=== PATIENT | female | born 1980 | race Caucasian/White ===

== ENCOUNTER 2019-01-17 21:40 | Emergency (ER) | payer BC ==
[~2019-01-17] VITALS: Ht 167.6 cm; Wt 99.8 kg
[2019-01-17 22:40] VITALS: BP 128/57
[2019-01-17] MEDS ORDERED: ESCITALOPRAM OX10 MG PO (22:45)
[2019-01-17] MEDS ORDERED: BUPR100T7 PO ×2 (22:46→23:01)
--- NOTE | 2019-01-17 23:40 | PHYS DOC ---
Past Medical History Past Medical History: Anxiety, Depression Past Surgical History: No Surgical History Alcohol Use: None Drug Use: None Adult General Chief Complaint Chief Complaint: ANKLE PROBLEM HPI HPI Patient is a 38 year old female presents to the ED complaining of right foot injury 2 hours ago. Patient states that she was going downstairs and twisted her right foot. Describes her pain as sharp. Rates her pain as 5 out of 10. Denies knee injury, weakness, paresthesias, swelling, laceration, or inability to bear weight. Review of Systems Review of Systems Constitutional: Denies fever or chills [] Eyes: Denies change in visual acuity, redness, or eye pain [] HENT: Denies nasal congestion or sore throat [] Respiratory: Denies cough or shortness of breath [] Cardiovascular: No additional information not addressed in HPI [] GI: Denies abdominal pain, nausea, vomiting, bloody stools or diarrhea [] : Denies dysuria or hematuria [] Musculoskeletal: Complains of foot and ankle pain. Denies back pain. Integument: Denies rash or skin lesions [] Neurologic: Denies headache, focal weakness or sensory changes [] All other systems were reviewed and found to be within normal limits, except as documented in this note. Allergies Allergies Allergies Coded Allergies Type Severity Reaction Last Updated Verified No Known Drug Allergies 01/17/19 No Physical Exam Physical Exam Constitutional: Well developed, well nourished, no acute distress, non-toxic appearance. [] HENT: Normocephalic, atraumatic Neck: Normal range of motion, no tenderness, supple, no stridor. [] Cardiovascular:Heart rate regular rhythm, no murmur [] Lungs & Thorax: Bilateral breath sounds clear to auscultation [] Skin: Warm, dry, no erythema, no rash. [] Back: No tenderness, no CVA tenderness. [] Extremities: mild right lateral ankle/foot tenderness, no cyanosis, no clubbing, ROM intact, no edema. [] Neurologic: Alert and oriented X 3, normal motor function, normal sensory function, no focal deficits noted. [] Psychologic: Affect normal, judgement normal, mood normal. [] Current Patient Data Vital Signs Vital Signs Date Time Temp Pulse Resp B/P (MAP) Pulse Ox O2 Delivery O2 Flow Rate FiO2 01/17/19 22:40 97.9 83 20 128/57 (80) 97 Room Air 97.9 EKG EKG [] Radiology/Procedures Radiology/Procedures No acute fracture. attending physician read imaging. Course & Med Decision Making Course & Med Decision Making Pertinent Labs and Imaging studies reviewed. (See chart for details) []Discussed imaging findings with patient. Patient able to ambulate without assistance. Discussed symptomatic treatment and follow-up with orthopedics if pain persists. Provided contact information/education. Discussed reasons to return to the ED. Patient understands and agrees with plan. Dragon Disclaimer Dragon Disclaimer This electronic medical record was generated, in whole or in part, using a voice recognition dictation system. Departure Departure Impression: Primary Impression: Foot sprain Disposition: HOME, SELF-CARE Condition: IMPROVED Referrals: NO PCP (PCP) PANDA ARMENTA II, MD Patient Instructions: Foot Sprain LIBERTAD AGRAWAL January 17, 2019 23:40
--- NOTE | 2019-01-18 02:38 | RAD ---
Indication:Fall TECHNIQUE: 3 views of the right ankle COMPARISON:None FINDINGS/ impression: No acute fracture or dislocation. Electronically signed by: Carmine Manrique DO (01/18/2019 2:36 AM) [facility]
--- NOTE | 2019-01-18 02:39 | RAD ---
Indication:Fall TECHNIQUE: 3 views of the right foot COMPARISON:None FINDINGS: No acute fracture or dislocation. Electronically signed by: Carmine Manrique DO (01/18/2019 2:37 AM) [facility]
== END 2019-01-18 01:03 | disposition home or self-care (01) ==
LOC: ER 21:40
DX: S93.691A Other sprain of right foot, initial encounter (principal); F41.9 Anxiety disorder, unspecified; F32.9 Major depressive disorder, single episode, unspecified; X50.1XXA Overexertion from prolonged static or awkward postures, initial encounter; Y93.89 Activity, other specified; Y92.89 Other specified places as the place of occurrence of the external cause; Y99.8 Other external cause status
CPT/HCPCS: 73610; 73630; 99284

== ENCOUNTER → 2019-02-10 | Outpatient (CLI) | payer BC ==
[2019-01-17 22:40] VITALS: BP 128/57
[~2019-02-10] MED LIST: BUPR100T7 PO; ESCITALOPRAM OX10 MG PO
--- NOTE | 2019-02-10 17:06 | KCIC ---
Right foot 3 views. HISTORY: Pain fifth metatarsal, rolled foot 3 views were taken of the right foot. There is a transverse fracture through the proximal aspect of the fifth metatarsal without significant displacement. IMPRESSION: 1. Fracture right fifth metatarsal. Electronically signed by: Garfield Sandhu MD (02/10/2019 5:03 PM) [facility]
== END | disposition home or self-care (01) ==
LOC: KCIC 16:08
PROVIDERS: ATTEND Family Medicine
DX: S92.811A Other fracture of right foot, initial encounter for closed fracture (principal); X50.1XXA Overexertion from prolonged static or awkward postures, initial encounter; Y93.89 Activity, other specified; Y92.89 Other specified places as the place of occurrence of the external cause; Y99.8 Other external cause status
CPT/HCPCS: 73630

== ENCOUNTER → 2021-04-18 | Outpatient (CLI) | payer BC ==
--- NOTE | 2021-04-18 12:09 | KCIC ---
Bilateral digital screening mammograms with 3-D tomosynthesis: Reason for examination: Routine baseline screening. Bilateral mammograms in CC and oblique projections were obtained with 2-D imaging and 3-D tomosynthes is imaging on a Siemens Inspiration unit and reviewed on the workstation. Interpretation was made wit kenn the benefit of CAD. The skin and nipples show no abnormalities. No abnormal axillary lymph nodes are seen. The breast par enchyma is extremely dense. (Breast density: Category D.) There are no dominant masses, suspicious ca lcifications or architectural distortion. Impression: No evidence of malignancy. Recommend routine screening. Your patient's mammogram demonstrates that she has dense breast tissue (breast density category C or D), which could hide abnormalities, and if she has other risk factors for breast cancer that have bee n identified, she might benefit from supplemental screening tests that may be suggested by you as her ordering physician. Dense breast tissue, in and of itself, is a relatively common condition. Therefo re, this information is not provided to cause undue concern, but rather to raise your awareness and t o promote discussion with your patient regarding the presence of other risk factors, in addition to d ense breast tissue. Your patient's mammography results will be sent to her. BI-RAD Category 1: Negative. "Our facility is accredited by the [employer] Mammography Program." This patient's information has been entered into a reminder system for the patient to be notified wit h the results of her examination and a target date for the next mammogram. Electronically signed by: Kaya Guo MD (04/18/2021 12:07 PM) [id number]
== END ==
LOC: KCIC MAMMO 08:19
PROVIDERS: ATTEND Internal Medicine
DX: Z12.31 Encounter for screening mammogram for malignant neoplasm of breast (principal)
CPT/HCPCS: 77063; 77067

== ENCOUNTER → 2021-07-29 | Outpatient (CLI) | payer OTHER ==
--- NOTE | 2021-07-29 16:34 | KCIC ---
CT SCREENING FOR CORONARY ARTERY History: Reason: Cardiovascular screening, family hx. heart disease. / Spl. Instructions: / History: Technique: With retrospective electrocardiogram gating axial reconstructed noncontrast images of the chest at the level of the coronary arteries was performed. Images were post processed on workstation and calcium score calculated using the modified Agatston Janowitz protocol. Exposure: One or more of the following individualized dose reduction techniques were utilized for thi s examination: 1. Automated exposure control 2. Adjustment of the mA and/or kV according to patient size 3. Use of iterative reconstruction technique. Comparison: None Findings: Total coronary calcium score is 0. There is no plaque burden and low cardiovascular disease risk. This is based on the calcium score of 0 of the left main coronary artery, 0 of the left anteri or descending artery, score of 0 of the left circumflex artery and score of 0 of the right coronary a rtery. Noncoronary findings: Calcified left lower lobe pulmonary nodules with left hilar calcified lymph nodes, likely prior granu lomatous disease. 2 mm left lower lobe pulmonary nodule (series 4 image 21). 3 mm right middle lobe f issure-based nodule (image 16). IMPRESSION: 1. Low cardiovascular disease risk. Calcium score 0. 2. Small pulmonary nodules. Recommend one-year follow-up chest CT without contrast if high risk. Electronically signed by: Raffi Greenberg DO (07/29/2021 4:31 PM) [id number]
== END ==
LOC: KCIC CT 15:11
PROVIDERS: ATTEND Internal Medicine
DX: Z13.6 Encounter for screening for cardiovascular disorders (principal); R91.8 Other nonspecific abnormal finding of lung field; Z82.49 Family history of ischemic heart disease and other diseases of the circulatory system
CPT/HCPCS: 75571